=== PATIENT | female | born 1975 | race Caucasian/White ===

== ENCOUNTER → 2016-05-15 | Outpatient (CLI) | payer OTHER ==
--- NOTE | ~2016-05-15 | PUL ---
PATIENT'S NAME: RAMIN RUBIO [facility] AGE: 40 Y [address] ROOM: [place] [address] LOCATION: [facility] ADMIT DATE: 05/15/2016 Pulmonary DISCHARGE DATE: FAMILY PHYSICIAN: Mercy Poole MD ATTENDING PHYSICIAN: Mercy Poole NAME OF PROCEDURE: Sleep Study DATE OF PROCEDURE: 05/15/16 TECH: ELIAS Schroeder TEST #: [facility]# [id number] MEDICAL HISTORY: The patient is 40-year-old woman with daytime sleepiness. SLEEP STAGE SUMMARY: The patient was studied for 541 minutes of which she slept 491 minutes. She fell asleep in 8 minutes and slept for 91% of the night. Sleep architecture revealed a decline in slow wave sleep. RESPIRATORY SUMMARY: Oxygen saturations ranged from 87-96%. Prior to initiating CPAP there were 10 apneas and 102 hypopneas for an apnea/hypopnea index moderately to severely elevated at 30 events per hour. CPAP was initiated and titrated to 8 cm with excellent control of the respiratory events. Significant rapid eye movement sleep rebound was noted after initiation of CPAP. EKG SUMMARY: No dysrhythmias were noted. LIMB MOVEMENT SUMMARY: No clinically relevant periodic limb movements were noted. SUMMARY: Moderate obstructive sleep apnea responsive to CPAP at 8 cm. PLAN: Suggest CPAP at 8 cm. OKSANA MONROY MD [facility]/ /[id number] dtt: 06/02/16 1252 Tamara David E. dtd: 05/18/16 0909
== END | disposition disaster alternative care site (69) ==
LOC: GSLP 20:19
DX: R06.83 Snoring (principal); G47.33 Obstructive sleep apnea (adult) (pediatric)

== ENCOUNTER → 2016-09-29 | Outpatient (CLI) | payer OTHER ==
--- NOTE | ~2016-09-29 | ECHO ---
Cardiac Stress Test Demographics Patient Name RAMIN RUBIO Date of Study 09/29/2016 Patient Number [id number] Visit Number [id number] Date of 1975 Room Number Accession Number [id number] Gender Female Age 41 year(s) Referring Star Holt MD Interpreting Star Holt MD Physician Physician Physician Ordering Physician Star Holt MD Clinic Md Associate Supervising MD/MLP Stress Gear Tester Nurse The procedure was explained in detail to the patient. Risks, complications and alternative treatments were reviewed. Written consent was obtained. Medications reviewed with patient prior to procedure. Procedure Type of Study Cardiac Stress Test:TREADMILL STRESS TEST. Procedure Date Date: 09/29/2016 Start: 12:50 PM Conclusions Summary Exercise ECG demonstrates downsloping ST depression at peak exercise without chest pain. Findings are suggestive but nondiagnostic for ischemia. Recommend repeat testing with addition of imaging modality such as nuclear imaging. Risk Factors - The patient's risk factor(s) include: previous angina/[place] and treated dyslipidemia. - The patient is under control medication . Stress Protocol Rest ECG RSR without ST or T wave changes. Resting HR:86 bpmResting BP:146/91 mmHg Pre-Stress Physical Exam Complains of left chest pain occurring with and without exertion. Denies shortness of breath, orthopnea, PND or edema. Denies palpitations, light-headiness or dizziness. Stress Peak HR: 160 bpm HR Response: Appropriate Peak BP: 160/90 mmHg BP Response: Appropriate Predicted HR: 180 bpm HR BP Product: 49932 % of predicted HR: 89 Test Duration: 10:00 min Exercise Effort: Good Reason for Termination: Target heart rate Perceived Exertion: [address] depression noted in Lead II, III, AVF Arrhythmias None Symptoms Shortness of breath. No chest pain. DTS = +5 correlates with low risk. Signature dtt: Jonathon Graves (cardio) dtd: 09/29/16 1250 Physician Self Edit
== END | disposition disaster alternative care site (69) ==
LOC: GCAR 12:32
DX: R07.89 Other chest pain (principal)